=== PATIENT | female | born 1950 | race Native Hawaiian/Other Pacific Islander ===

== ENCOUNTER 2018-05-22 19:40 | Inpatient (IN) | payer OTHER ==
[~2018-05-22] VITALS: Ht 147.3 cm; Wt 42.6 kg
--- NOTE | ~2018-05-22 | HC ---
[facility] [place] [address] CONSULTATION Name: GARTH COLLINS Room #: 222-P ADM IN M.R.#: [id number] Admission: 05/22/18 Attend Phys: Fredrick Levi MD Discharge: Date of : 54 Report #: [id number] THIS REPORT FOR: //name// CC: Fredrick Gibbons DATE OF SERVICE: 05/24/2018 HISTORY OF PRESENT ILLNESS: The patient is a 68-year-old female with a prior history of Parkinson's disease and Lewy body dementia who has been living in the community with her . She had a problem with acute mental status changes with a urinary tract infection and was originally admitted to [facility] on 05/17/2018 and discharged on 05/19/2018. Since going back home, she initially was doing quite well and then had another decline in function with a recurrent UTI and was readmitted this time to [facility] on 05/22/2018. She has been diagnosed with acute encephalopathy superimposed on Parkinson's disease and Lewy body dementia. She was seen by Neurology and thought to have a rapid onset of dementia, thought to be Lewy body. She has had a decline in her function. We are seeing her in rehabilitation medicine consultation. PAST MEDICAL HISTORY: As noted above. She has a history of Parkinson's disease, Lewy body dementia was diagnosed in 03/2018, history of UTI, bronchiolitis, hypertension. There is a note of idiopathic stupor that she had with one of the urinary tract infections. MEDICATIONS: Please see the full medication listing. This includes vitamins, herbals, and supplements. ALLERGIES: No known drug allergies. HABITS: No history of tobacco or alcohol abuse that is noted. SOCIAL HISTORY: Lives in the community with her 's house, premorbidly, ambulated without gait aids, 4 steps in. is retired and assist the patient. She was able to ambulate like I said without any assistive device. REVIEW OF SYSTEMS: Did not offer any current complaints of chest pain, shortness of breath, or abdominal discomfort. PHYSICAL EXAMINATION: GENERAL: Small statured Japanese female, in no obvious distress. VITAL SIGNS: Last recorded temperature 98.3, pulse 91, respirations 20, blood pressure 141/92. NEUROLOGIC: She is pleasant. She does respond with facial expression. Has very limited verbalizations, but she was able to say hello to me. She was able to raise up her right arm to shake hands. She could participate with [employer] [facility] [address] [place] [address] CONSULTATION Name: GARTH COLLINS Room #: 222-P [facility] IN [facility]#: [id number] Admission: 05/22/18 Attend Phys: Fredrick Levi MD Discharge: Date of : 54 Report #: [id number] manual muscle testing. HEENT: Facies appeared to be symmetric. EXTREMITIES: Functional range of motion of both upper extremities. There is some cogwheeling elbows and wrists. No real resting tremor was noted. Lower extremities, there is no focal calf swelling, functional range of motion. Strength of the upper and lower extremity is grade 4 to 4-/5. DTRs are trace to 1. She was min assist with supine to sit. Gait was 200 feet min assist. She does have loss of balance when up. ASSESSMENT: A 68-year-old female with the following problem list: 1. Metabolic encephalopathy. 2. Parkinson's disease. 3. Premorbid Lewy body dementia, nevertheless living in the community. 4. Urinary tract infection. 5. Functional decline. 6. Hypertension. 7. Electrolyte abnormalities. PLAN: The patient is a candidate for an acute in-hospital inpatient rehabilitation stay. The goal would be to further improve her strength, endurance, balance, functional mobility, and ADLs, so that she could return back to the home setting where she lives with her . is supportive, desires to stay with her on the rehab lacy, which I thought would be a good idea. Can plan on transfer to the acute inpatient rehab lacy when medically cleared and the bed available. By: 1422 1801 Angel Banuelos MD /GROVER
[2018-05-22 19:41] VITALS: BP 146/82
[2018-05-22] MEDS ORDERED: CLONAZEPAM 0.50.5 M1 PO (19:55)
[2018-05-22] MEDS ORDERED: CARBIDOPA-LEVO1 EAC8 PO (19:56)
[2018-05-22] MEDS ORDERED: ARICEPT10 M1 PO (19:56)
[2018-05-22] MEDS ORDERED: LIPITOR10 MG PO (19:57)
[2018-05-22] MEDS ORDERED: HYDROCHLOROTH12.5 M1 PO (19:57)
[2018-05-22] MEDS ORDERED: CALCIUM500 MG PO (19:59)
[2018-05-22] MEDS ORDERED: CALCIUM CITRAT1 EAC7 PO (19:59)
[2018-05-22] MEDS ORDERED: KLOR-CON 1010 MEQ PO (20:00)
[2018-05-22] MEDS ORDERED: MELATIN3 MG PO (20:00)
[2018-05-22] MEDS ORDERED: TOPROL XL100 MG PO (20:00)
[2018-05-22] MEDS ORDERED: ZOLOFT50 MG PO (20:00)
[2018-05-22 20:15] LABS: ABSOLUTE NEUTROPHILS 4.9 thou/uL (1.4-8.2); BASOPHILS 0.9 % (0.0-2.0); EOSINOPHILS 2.7 % (0.0-3.0); HEMOGLOBIN 14.8 gm/dL (12.0-15.0); LYMPHOCYTES 21.6 % (24.0-44.0); MCH 31.3 pg (26.0-34.0); MCHC 34.5 g/dL (28.0-37.0); MCV 90.7 fL (80.0-100.0); MONOCYTES 9.7 % (1.0-8.0); PLATELET COUNT 174 thou/uL (150-400); POLYS 65.1 % (36.0-66.0); RBC 4.74 mil/uL (4.20-5.00); RDW 12.9 % (10.5-14.5); WBC 7.5 thou/uL (4.0-11.0)
[2018-05-22 20:26] LABS: CALCIUM 9.8 mg/dL (8.5-10.1); CREATININE 0.7 mg/dL (0.6-1.0)
[2018-05-22 20:32] LABS: ALBUMIN 3.6 g/dL (3.4-5.0); TOTAL BILIRUBIN 0.8 mg/dL (<0.1-1.0); TOTAL PROTEIN 8.2 g/dL (6.4-8.2); TROPONIN-I 0.1 ng/mL (<0.06)
[2018-05-22 20:33] LABS: URINE CLARITY CLEAR; URINE COLOR YELLOW
[2018-05-22 20:34] LABS: URINE BILIRUBIN NEGATIVE (Negative); URINE BLOOD 3+ (Negative); URINE GLUCOSE-RANDOM* NEGATIVE (Negative); URINE KETONES NEGATIVE (Negative); URINE LEUKOCYTES-REFLEX 1+ (Negative); URINE NITRITE-REFLEX NEGATIVE (Negative); URINE PROTEIN (DIPSTICK) NEGATIVE (Negative); URINE UROBILINOGEN 0.2 E.U./dl (0.2-1.0)
[2018-05-22 20:35] LABS: BACTERIA-REFLEX >30 Many /HPF (None Seen); CASTS None Seen /LPF (None Seen); CRYSTALS None Seen /LPF (None Seen); SQUAMOUS 0-3 Few /LPF (0-3); URINE RBC 3-10 Few /HPF (0-2)
[2018-05-22 20:38] LABS: AMP/METHAMP Negative (Negative); BARBITURATES Negative (Negative); BENZODIAZEPINES Negative (Negative); COCAINE Negative (Negative); METHADONE Negative (Negative); OPIATES Negative (Negative); PCP Negative (Negative)
[2018-05-22 22:08] VITALS: BP 148/67
[2018-05-22 22:09] VITALS: BP 148/67
--- NOTE | 2018-05-22 22:13 | EKG ---
[address] [place] [address] ELECTROCARDIOGRAM REPORT Name: DENNISGARTH Room #: 170-10 ADM IN M.R.#: [id number] Admission: 05/22/18 Attend Phys: Darius Foley MD Discharge: Date of : 54 Report #: [id number] THIS REPORT FOR: //name// [facility] ED Test Date: 2018-05-22 Test Time: 20:00:59 Pat Name: GARTH COLLINS Department: Room: 170 Gender: F Project Portfolio Analyst: ANABELLA : 1950 Requested By: Edie Atkins Order Number: [id number] MD: Gabriel Lloyd Measurements Intervals [place] Rate: 64 P: 43 IL: 161 QRS: 33 QRSD: 99 T: 19 QT: 407 QTc: 420 Interpretive Statements Sinus rhythm left atrial enlargement Left ventricular hypertrophy Baseline wander in lead(s) V1 Nonspecific ST-T wave changes AC noise noted No previous ECG available for comparison Electronically Signed On 05-22-2018 22:13:24 AUTO BODY REPAIRER by Gabriel Lloyd [email or web address] <ELECTRONICALLY SIGNED> By: Gabriel Lloyd MD 05/22/18 2213 99 99 Gabriel Lloyd MD /EPI
[2018-05-22 22:39] VITALS: BP 136/84
[2018-05-22 23:00] VITALS: BP 138/76
[2018-05-23 04:05] VITALS: BP 133/72
[2018-05-23 04:11] LABS: CALCIUM 9.1 mg/dL (8.5-10.1); CREATININE 0.6 mg/dL (0.6-1.0); POTASSIUM 3.4 mmol/L (3.5-5.1)
--- NOTE | 2018-05-23 05:05 | NUR ---
Arrived from ER around 2029, patient had eyes closed on arrival, but opened the eyes, talked in a wisper voice with smiles. The said she had not been alert like this for a while. VSS, afebrile. bedside. Patient is lying in bed now, with eyes closed. will keep monitoring.
[2018-05-23 05:09] LABS: FOLIC ACID 39.4 ng/mL (8.6-58.9)
[2018-05-23 08:05] VITALS: BP 143/67
--- NOTE | 2018-05-23 12:07 | NUR ---
PT ADMITTED RELATED TO UTI. CM REVIEWED CHART AND SPOKE WITH CARE TEAM. CM MET WITH PT, SPOUSE, AND SON AT BEDSIDE THIS DAY. PT IS AWAKE BUT DOESN'T RESPOND TO ASSESSMENT QUESTIONS. SPOUSE INDICATED HE AND PT RESIDE IN A HOUSE WITH 5 STEPS TO ENTER AND 5 SETS OF 8 INSIDE. SPOUSE INDICATED THAT PT HAD BEEN ON SERVICE WITH [facility] COLL[facility] STITCHER AND THEY ARE RECEPTIVE TO HH AGAIN UPON DC IF INDICATED. 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 PLAN IS FOR PT TO RETURN HOME ONCE MEDICALLY STABLE. CM TO FOLLOW INDICATED WITH DC PLANNING.
[2018-05-23 12:45] VITALS: BP 143/67
--- NOTE | 2018-05-23 13:39 | NUR ---
REPORT GIVEN TO SENIOR SUITES NURSE. PATIENT AND HER BELONINGS MOVED TO ROOM 223
[2018-05-23 14:33] VITALS: BP 148/80
--- NOTE | 2018-05-23 15:09 | NUR ---
PATIENT TRANSFERRED FROM [facility], REPORT RECEIVED FROM CORNELL/MELECIO. PATIENT ALERT AND ORIENTED WITH A DELAY WITH SPEAKING WHEN QUESTIONS ASKED, AT BEDSIDE TO ASSIST WHEN ASKING QUESTIONS. PATIENT DENIES PAIN UPON ARRIVING TO THE UNIT. PATIENT HAS RIGHT WRIST IV WITH NS AT 75CC/HR. PATIENT CAN GET UP WITH ASSIST TO BSC. WILL CONTINUE TO MONITOR.
--- NOTE | 2018-05-24 01:51 | NUR ---
Pt alert to self and place,sometimes able to make needs known other times will just keep quiet and smile. Denies pain on assessment. Up with SBA to bathroom,voiding without any complaints. Bed alarm on as pt doesn't always call for help,spouse at the bedside for the night. Had an episode of incontinence with urine. IV fluids infusing via right wrist IV without any problems.Pt resting quietly with eyes closed at this time,will continue to monitor.
[2018-05-24 02:31] LABS: ABSOLUTE NEUTROPHILS 5.5 thou/uL (1.4-8.2); BASOPHILS 0.9 % (0.0-2.0); EOSINOPHILS 1.4 % (0.0-3.0); HEMATOCRIT 37.1 % (37.0-47.0); HEMOGLOBIN 12.9 gm/dL (12.0-15.0); LYMPHOCYTES 20.8 % (24.0-44.0); MCH 31.4 pg (26.0-34.0); MCHC 34.6 g/dL (28.0-37.0); MCV 90.6 fL (80.0-100.0); PLATELET COUNT 171 thou/uL (150-400); POLYS 68.9 % (36.0-66.0); RDW 12.8 % (10.5-14.5)
[2018-05-24 03:02] LABS: CALCIUM 8.7 mg/dL (8.5-10.1); CREATININE 0.7 mg/dL (0.6-1.0); POTASSIUM 3.4 mmol/L (3.5-5.1)
[2018-05-24 09:11] VITALS: BP 141/92
--- NOTE | 2018-05-24 13:09 | NUR ---
5N to eval patient. Sp with spouse he reports he sp with Dr Hicks that mentioned skilled care as well. Patient with recent Lewy Body dementia diagnosis. Spouse reports patient has not been in rehab at [facility] which is hospital they usually choose. Hopeful for 5N if not 5N interested in [facility]. Sp has skilled list reviewed options.
[2018-05-24] MEDS ORDERED: ROCEPHIN 11 GM/1001 IV (15:36)
--- NOTE | 2018-05-24 16:06 | NUR ---
patient accepted to 5N. Planned dc to 5N today. patient, spouse in agreement.
--- NOTE | 2018-05-24 17:40 | NUR ---
ASSUMED CARE OF PATIENT AT 0715, PATIENT ALERT WITH CONFUSION. PAIENT HAS A DELAY WITH SPEAKING, MAY NOT ANSWER WHEN QUESTIONS ASKED. PATIENT HAS ENCEPHALOPATHY AND LEWY BODY DEMENTIA BOTH RECENT DIAGNOSES. PATIENT APPEARS TO NOT HAVE ANY PAIN THIS SHIFT. AT BEDSIDE. PATIENT HAS RIGHT FOREARM IV WITH NS AT 75CC/HR. PATIENT TAKES PILLS 1 AT A TIME WITH YOGURT OR PUDDING. PATIENT UP WITH ASSIST X 1, PATIENT CAN BE INCONTINENT. PATIENT WILL DISCHARGE TO [address] [place] [address] REHAB, REPORT GIVEN TO SISTER REGI/RN. PATIENT WILL BE IN 514.
== END 2018-05-24 18:10 | DRG 689 ==
LOC: ER 19:40 → 4E 21:42 → EROBS 21:42 → SICU 21:42 → 4E 22:39 → SICU 05-23 13:43
PROVIDERS: Hospitalist; Nurse Practitioner Family; Student in an Organized Health Care Education/Training Program; ADMIT Hospitalist
DX: N39.0 Urinary tract infection, site not specified (principal); G93.41 Metabolic encephalopathy; E43 Unspecified severe protein-calorie malnutrition; Z68.1 Body mass index [BMI] 19.9 or less, adult; I10 Essential (primary) hypertension; E87.6 Hypokalemia; G31.83 Neurocognitive disorder with Lewy bodies; F02.80 Dementia in other diseases classified elsewhere, unspecified severity, without behavioral disturbance, psychotic disturbance, mood disturbance, and anxiety; E87.8 Other disorders of electrolyte and fluid balance, not elsewhere classified; E78.5 Hyperlipidemia, unspecified; K59.00 Constipation, unspecified; F41.9 Anxiety disorder, unspecified; F32.9 Major depressive disorder, single episode, unspecified; E86.0 Dehydration; Z79.899 Other long term (current) drug therapy
CPT/HCPCS: 10084; 15002

== ENCOUNTER 2018-05-24 16:26 | Inpatient (IN) | payer OTHER ==
[~2018-05-24] VITALS: Ht 152.4 cm; Wt 43.1 kg
[~2018-05-24 16:26] MED LIST: ARICEPT10 M1 PO; CALCIUM CITRAT1 EAC7 PO; CALCIUM500 MG PO; CARBIDOPA-LEVO1 EAC8 PO; CLONAZEPAM 0.50.5 M1 PO; HYDROCHLOROTH12.5 M1 PO; KLOR-CON 1010 MEQ PO; LIPITOR10 MG PO; MELATIN3 MG PO; ROCEPHIN 11 GM/1001 IV; TOPROL XL100 MG PO; ZOLOFT50 MG PO
[2018-05-24 18:00] VITALS: BP 145/88
--- NOTE | 2018-05-24 19:28 | NUR ---
PT ADMITTED TO ROOM 514 AT 1800. FOR METABOLIC ENCEPHALOPATHY, PARKINSON'S DISEASE. ALERT, QUIET, SMILE, SLOW IN RESPONSE, IS AT BEDSIDE AND ASSIST ASWERING ADMISSION QUESTIONS. REASSESSMENT PER CHART, ADMISSION MEDS RECONCILED WITH HOME MEDS AND FAXED TO PHARMACIST. OFFERED SUPPORTIVE CARE. ENCOURAGED PT TO VOICE HER NEEDS. UP TO RECLINER AND EATING DINNER WITH CUE. PT IS CONTINUE TO BE ON CEFTRIAXONE IV ABT FOR UTI. UP WITH SBA SINCE SHE IS WEAK, FOLLOW COMMAND. SAID PT WAS INDEPENDENCE WITH GAIT AND ADL, COOKS FOR HERSELF AND HER AT HOME. ORIENTED TO [facility] AND WENT OVER REHAB SCHEDULE. WILL SIGN CONSENTS LATER AND WILL STAY WITH PT'S TONIGHT. PT DENIES PAIN, SOB, N/V. FALL PRECAUTION IN PLACE. CALL LIGHT WITHIN REACH. GAVE REPORT TO NIGHT NURSE TO CONTINUE TO MONITOR. IV ON RIGHT WRIST LITTLE INFILTRATED, WILL TRY TO START IV ON LEFT FOREARM AFTER PT FINISH HER DINNER. WILL CONTINUE TO MONITOR.
[2018-05-24 19:51] VITALS: BP 151/80
--- NOTE | 2018-05-24 20:09 | NUR ---
IV ON RIGHT WRIST REMOVED. INSERTED NEW IV ON LEFT FOREARM. PT CONTINUE TO BE IV ABT TONIGHT.
--- NOTE | 2018-05-25 03:08 | NUR ---
assumed care at approx 1900 evening 05/24. pt lying in bed with head of bed elevated at change of shift. pt pleasantly confused, cooperative. at bedside very supportive with pts care. pt up to bathroom to void and pt also has brief on. pt took hs meds with applesauce tolerating well. pt appears to be sleeping soundly with hourly rounding checks. bed alarm on and call light in reach. sleeping on cot at bedside. will continue to monitor.
[2018-05-25 08:29] LABS: HEMATOCRIT 37.4 % (37.0-47.0); HEMOGLOBIN 12.8 gm/dL (12.0-15.0); MCHC 34.3 g/dL (28.0-37.0); MCV 90.4 fL (80.0-100.0); RBC 4.13 mil/uL (4.20-5.00); RDW 12.9 % (10.5-14.5); WBC 6.1 thou/uL (4.0-11.0)
[2018-05-25 08:37] LABS: CALCIUM 9.1 mg/dL (8.5-10.1); CREATININE 0.6 mg/dL (0.6-1.0)
--- NOTE | 2018-05-25 16:26 | NUR ---
PT. REMAINS WITH PATIENT. SHE REMAINS CONFUSED, VERBALIZING VERY LITTLE WITH STAFF SHE IS HARD OF HEARING, BUT DID SIT ON UNIT TO EAT. HAS LT ARM SALINE LOCK. RECEIVED STOOL SOFTNER. LAB DRAWN THIS MORNING.
[2018-05-25 19:26] VITALS: BP 158/78
--- NOTE | 2018-05-25 23:00 | NUR ---
PATIENT LETHARGIC AND CLENCHING TEETH SO TO NOT ALLOW MEDS TO BE GIVEN. SINEMET GIVEN CRUSHED IN YOGURT IN SMALL PORTIONS. OTHER MEDS HELD WITH ORDER TO GIVE POTASSIUM SWITCHED TO IV ADMINISTRATION. LATONIA AT BEDSIDE STATES THAT SOMETIMES SHE WILL BE LIKE THIS A DAY OR 36 HOURS AND SUDDENLY WILL START TALKING AGAIN.
--- NOTE | 2018-05-26 03:38 | NUR ---
PATIENT RESTING WITH STAYING IN ROOM ON A COT. POTASSIUM FINISHING IN LEFT FOREARM SITE WITH NO APPARENT PAIN
[2018-05-26 05:41] LABS: HEMATOCRIT 38.1 % (37.0-47.0); HEMOGLOBIN 12.9 gm/dL (12.0-15.0); MCH 31.1 pg (26.0-34.0); MCV 91.5 fL (80.0-100.0); RBC 4.16 mil/uL (4.20-5.00); RDW 13.2 % (10.5-14.5); WBC 6.9 thou/uL (4.0-11.0)
[2018-05-26 05:51] LABS: CALCIUM 8.8 mg/dL (8.5-10.1); CREATININE 0.7 mg/dL (0.6-1.0); POTASSIUM 3.8 mmol/L (3.5-5.1)
[2018-05-26 07:35] VITALS: BP 140/78
--- NOTE | 2018-05-26 11:24 | NUR ---
ASSUMED CARE AT 0700. PATIENT IS VERY SOMULENT. PATIENT DID RESPOND TO STERNAL RUB AND FOOT STIMULATION. PATIENT DIDN'T OPEN HER EYES. AT BEDSIDE. HE STATED " SHE WENT TO BED AT 1800 AND HAS BEEN SOMULENT EVER SINCE. LUNGS ARE CLEAR, ABD IS SOFT WITH BSX4. PATIENT IS INCONTINENT OF URINE. PATIENT HAS S.L. IN HER LEFT FORARM. DR. WHALEN NOTIFIED. ORDERS RECIEVED TO HOLD MEDS AND MEALS UNTIL AWAKE AND ALERT. IVF: NS STARTED AT 75CC/HR. PATIENT WAS CLEANED UP AND TURNED TO HER LEFT SIDE. PATIENT WILL BE TURNED Q2 HOURS. FALL AND SAFETY PROTOCOLS IN PLACE. WILL CONTINUE TO MONITER.
--- NOTE | 2018-05-26 11:28 | NUR ---
DR. WHALEN HERE TO SEE PATIENT. NO NEW ORDERS GIVEN. CONTINUE PLAN OF CARE UNTIL PATIENT IS AWAke and ALERT. WILL CONTINUE TO MONITER.
[2018-05-26 19:41] VITALS: BP 142/85
--- NOTE | 2018-05-27 01:46 | NUR ---
PATIENT REMAINS SLEEPY, WAS AWAKE AND THISTY AT 2200, SO SHE WAS GIVEN CRUSHED ARICEPT AND WHOLE SINEMET CR WITH APPLESAUCE PLUS A FEW SIPS OF WATER BEFORE SHE DOZED OFF AGAIN. IS STAYING OVERNIGHT WITH PATIENT, VERY ATTENTIVE, AND ENCOURAGING HER TO TAKE ANYTHING PO WHEN SHE IS AWAKE. AT THIS POINT, WE ARE TURNING HER EVERY 2 HOURS, CHANGING HER IF WET, AND APPLYING MOISTURE BARRIER, HEELS ARE OFFLOADED WITH PILLOW UNDER CALVES, SCDs ARE ON, IV FLUIDS ARE INFUSING, DAILY ANTIBIOTIC WAS GIVEN AT 2100. WILL ENCOURAGE PATIENT TO TAKE POTASSIUM 10 mEq PILLS IF AND ONLY IF WE ASSISTANT OPERATOR HER TO BE AWAKE ENOUGH TO SWALLOW THEM WHOLE WITH APPLESAUCE OR YOGURT.
--- NOTE | 2018-05-27 02:45 | NUR ---
AWAKE ENOUGH TO DRINK 120 CC WATER BY REQUEST AND 60 CC APPLE JUICE WHEN OFFERED SMALL SIPS THOUGH STRAW
[2018-05-27 08:15] VITALS: BP 143/84
--- NOTE | 2018-05-27 12:15 | NUR ---
cm visited with pt and spouse at bedside. no co from pt or spouse. education on dcp, team meetings and home health. pt soft spoken with yes to her martin with confusion and forgetfulness. david stay with her " i help her at home, she has chair yoga for activity. had [facility] in past. 5 steps to enter home and 5 set of 8 stair inside home. i manage her medication for her.thank you for check in on use"/ david. will cont following as needed for dc needs.
--- NOTE | 2018-05-27 19:47 | NUR ---
ASSUMED CARE AT APPROX 0715. PATIENT AWAKE THIS DATE. SLOW TO FOLLOW COMMANDS. NOT VERBALIZING NEEDS, OCCASIONALLY WILL ANSWER YES OR NO. PARTICIPATED IN SOME THERAPY. PATIENT OBSERVED LIMPING DURING THERAPY. LEFT ANKLE HAD MINIMAL SWELLING. PATIENT REFUSED TO VERBALIZE PAIN RATING, NO GUARDING FOOT, AMBULATED MIN ASSIST. X RAY OBTAINED, SHOWED NO OSSEOUS FINDINGS. PATIENT ATE SMALL AMOUNTS OF FOOD, DRANK WELL, INCONTINENT OF URINE- VOIDING WELL, BRIEFS CHECKED AND CHANGED NEEDED. FALL PRECAUTIONS IN PLACE. RESTING IN BED AT CHANGE OF SHIFT.
[2018-05-27 20:00] VITALS: BP 129/74
--- NOTE | 2018-05-27 21:53 | HC ---
[facility] [place] [address] CONSULTATION Name: GARTH COLLINS Room #: 514-P ADM IN M.R.#: [id number] Admission: 05/24/18 Attend Phys: Angel Banuelos MD Discharge: Date of : 54 Report #: [id number] THIS REPORT FOR: //name// CC: Tonya Banuelos DATE OF SERVICE: 05/26/2018 ATTENDING PHYSICIAN: Angel Banuelos MD RIB CLOTH KNITTER: Beni Baez, PhD CLINICAL PRESENTATION: The patient is a 68-year-old female admitted to the rehab unit at [facility] for comprehensive inpatient rehabilitation program to improve functional mobility, activities of daily living and self-care and mental status secondary to metabolic encephalopathy. She carries diagnoses of Parkinson's disease, premorbid Lewy body dementia, urinary tract infection, functional decline, hypertension and electrolyte abnormalities. A complete description of her medical condition, history and medications can be found in her medical record. Neuropsychological consultation was requested to provide assistance in the assessment of cognitive and emotional status and to provide recommendations and services. The patient is with 3 children. 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 There is no reported history of mental illness, treatment for depression or anxiety or alcohol/drug abuse. TECHNIQUES UTILIZED: Clinical interview, review of medical records, staff consultation and behavioral observation, family interview -- and family. EXAMINATION FINDINGS: The patient was unresponsive during the assessment. She just remained lying in her bed without opening her eyes. Their was no response to attempts at obtaining a response from either her or [id number]. The patient is described as having been unresponsive for the last couple of days. Her describes her history to include a discontinuation of driving approximately 05/2016. The reason she discontinued driving is reported to have been orthopedic with a knee related problem. However, she was able to manage household responsibilities that included basic and instrumental activities of daily living. Her functioning was first noticed to have deteriorated beginning 10/2017. In 10/2017, she reportedly became paranoid with intermittent confusion and disorientation. Her family described her as seeing people in the home as well [facility] [address] [place] [address] CONSULTATION Name: GARTH COLLINS Room #: 514-P [facility] IN M.R.#: [id number] Admission: 05/24/18 Attend Phys: Angel Banuelos MD Discharge: Date of : 54 Report #: [id number] as paranoid thinking in regard to their safety along with visual hallucinations. She then had a brief hospitalization at the [facility] in which she was diagnosed with the Lewy body dementia. When she returned home, her functioning improved; however, still requiring increased supervision and structure. In 03/2018, her condition deteriorated considerably to the extent of periodic unresponsiveness that eventually resolved with a resolution to a more responsive state. However, assistance with IADL's is necessary. She has been unresponsive during this most recent hospitalization. DIAGNOSTIC IMPRESSION: Delirium, hypoactive, acute. Major neurocognitive disorder (dementia), unspecified without behavior disorder -- extent to be determined, appears in the [id number] range by family report. Unspecified Psychotic Disorder RECOMMENDATIONS: Depending on the extent of the workup that has already further assessment of delirium is indicated. Periodic unresponsivness is typically associated with advanced dementia, however, the rapid nature of her decline suggests an acute condition. Although, periodic episodes of unresponsiveness can be seen in dementia. Catatonia that is associated with schizophrenia can also present with periodic unresponsiveness and hallucinations. She may benefit from psychiatric consultation. Follow up neuropsych assessment upon stabilization of her cognitive presentation. The patient will require 24-hour care that includes assistance in management of medication, nutrition and finances. Thank you very much for allowing me to provide the consultation on this patient. <ELECTRONICALLY SIGNED> By: Beni Baez, PhD 05/27/18 [id number] Beni Baez, PhD /nt
--- NOTE | 2018-05-27 23:17 | NUR ---
assumed care at approx 1900 evening 05/27. pt in recliner at change of shift sleeping. at bedside. pt awoken and assisted to bathroom to void in toilet. pts brief was dry. assisted with gown change and into bed. pt appropriate and cooperative. pt took hs meds with applesauce tolerating well. at bedside now sleeping on cot. pt appears to be sleeping soundly at present. bed alarm on and call light in reach. will continue to monitor.
[2018-05-28 07:50] VITALS: BP 125/70
--- NOTE | 2018-05-28 13:03 | NUR ---
team meeting, recommendation: dc home with hh ( pt,ot,st, and nursing) or possible next sunday if neuro and pysch need to cont to monitor medication changes.
--- NOTE | 2018-05-28 14:09 | NUR ---
DR. MAI CALLED TO CHECK ON PT'S PROGRESS ON THE ATIVAN. NOTED TO HER THAT PT HAS BEEN MUCH MORE ENGAGED, WALKING AROUND THE UNIT WITH THE PCT AND HER , AND SMILING, TALKING SOME, AND NO FURTHER FREEZING EPISODES NOTED DURING ACTIVITY. PER DR. MAI, THIS CHANGE IN HER DEMEANOR WAS ANTICIPATED, AND THERE WILL NOW BE A PLAN TO SCHEDULE THE ATIVAN THROUGHOUT THE DAY.
--- NOTE | 2018-05-28 16:34 | NUR ---
ASSUMED CARES AT 0700. PT CONFUSED, ORIENTED TO SELF ONLY. QUIET AND DISORIENTED THIS AM, ATIVAN ADMINISTERED PER ORDER AND PT MORE INTERACTIVE AND WALKED MULTIPLE TIMES WITH NURSE AIDE. PSYCH CONSULTED AND ATIVAN ORDERED TID. VITALS REMAINED STABLE. PT DENIES PAIN. NO SKIN CONCERNS. PT UP WITH 1 PERSON TRANSFERS AND AMBULATED THE HALLWAYS WITH GAITBELT ONLY AND TOLERATED WELL. Q1L VISUAL CHECKS. SPOUSE IN ROOM WITH PT. FALL PRECAUTIONS IN PLACE. CALL LIGHT WITHIN REACH
[2018-05-28 19:30] VITALS: BP 117/66
--- NOTE | 2018-05-29 01:20 | NUR ---
PT ALERT AND ORIENTED X 1. AMB TO BR WITH GAIT BELT AND ASSIST X 1. UNSTEADY GAIT. IMPULSIVE X 1 LAST EVENING SETTING OF CHAIR ALARM AND FOUND IN BATHROOM. PT TOOK HS MEDS CRUSHED IN APPLESAUCE WITHOUT DIFFICULTY. PT DENIES PAIN OR DISCOMFORT. BED ALARM ON FOR SAFETY. PT EASILY VISIBLE FROM NURSES STATION. HERE DURING THE NIGHT.
[2018-05-29 09:07] VITALS: BP 116/70
--- NOTE | 2018-05-29 09:35 | NUR ---
FAXED REFERRAL TO [facility] SPOKE WITH HERI IN ADM. SHE RECEIVED REFERRAL AND CAN ACCEPT PT. AT [place]. DCP TO FOLLOW.
[2018-05-29 09:49] VITALS: BP 116/70
--- NOTE | 2018-05-29 12:02 | NUR ---
ASSUMED CARES AT 0700. PT ASLEEP, ORIENTED TO PERSON ONLY. WOKE UP A 0800. VITALS REMAINED STABLE. DENIES PAIN. SKIN REMAINS INTACT. PT UP WITH 1 PERSON MIN ASSIST, AMBULATED TO THE BATHROOM, INCONTINENT OF BLADDER *1. PT'S SPOUSE IN ROOM WITH PATIENT. PT TIRED, WITHDRAWN AND SLEEPY AFTER AM THERAPY, ATIVAN ADMINISTERED AT NOON. Q1H VISUAL CHECKS. CALL LIGHT WITHIN REACH. FALL PRECAUTIONS IN PLACE
--- NOTE | 2018-05-29 15:17 | NUR ---
Patient participated in community reintegration on 05/29/18 with OT. Refer to documentation by OT.
[2018-05-29 19:29] VITALS: BP 115/63
--- NOTE | 2018-05-30 05:29 | NUR ---
PT RESTED GOOD, STANDBY ASSIST WITH AMBULATION, SLOW THOUGHT PROCESS AT TIMES, INTERACTED GOOD WITH THIS NURSE IN HER [place] LANGUAGE, PER REQUEST TO GIVE HER ATIVAN EARLY THIS MORNING TO HELP PT GET MORE REST, DENIES PAIN, ABLE TO TURN AND REPOSITION SELF, HOURLY ROUNDING, MONTIORED.
[2018-05-30 08:00] VITALS: BP 113/78
--- NOTE | 2018-05-30 14:39 | NUR ---
PATIENT'S DAUGHTER ROSANGELA ROSE NOTED OVER THE PHONE THIS AFTERNOON THAT THEY ARE WONDERING IF THE CARBIDOPA/LEVODOPA CAN BE REDUCED IN DOSAGE OR STOPPED COMPLETELY WHILE THE PATIENT IS IN THE HOSPITAL TO SEE IF SHE EVEN NEEDS THIS MEDICATION. ROSANGELA STATED THAT THE PATIENT WAS BROUGHT IN TO THE ED AT [facility] IN MARCH OF 2018, DUE TO SHAKING, AND WAS GIVEN IV ATIVAN, WHICH RESOLVED THE ISSUE. SHE SAID THAT AFTER THE IV MEDICATION WORE OFF, THE SHAKING STARTED AGAIN, AND THE NEUROLOGIST AT [facility] PUT THE PATIENT ON CARBIDOPA/LEVODOPA. PER PT'S , EVERYTHING WAS GOING WELL UNTIL THIS RECENT ACUTE ISSUE WITH CATATONIA AND FREEZING, AND PT HAD UTI. PT'S AND DAUGHTER BOTH WERE PLEASED WITH HER RESPONSE TO THE ATIVAN, AND QUESTION IF THE PATIENT NEEDS THE SINEMET. DAUGHTER ASKED IF THE SINEMET CAN BE STOPPED WHILE SHE IS INPATIENT TO SEE IF SHE REGRESSES OR IF THE ATIVAN IS ENOUGH TO MANAGE HER ISSUES. THIS QUESTION WAS CONVEYED TO MANUELA LOZANO NP, WHO STATED PLAN TO CONSULT OUR NEUROLOGIST AT [facility] TO EVALUATE TITRATION OF CARBIDOPA/LEVODOPA IF APPROPRIATE.
--- NOTE | 2018-05-30 16:41 | NUR ---
ASSUMED CARE AT APPROX 0715. PATIENT AWAKE, ALERT, ORIENTED TO PERSON AND PLACE. VERBALIZING NEEDS. PARTICIPATING IN THERAPY, ENGAGED IN CARE. ATIVAN ADMINISTERED PER ORDERS, PSYCHIATRY TO SEE PATIENT THIS EVENING. ANTICIPATING D/C HOME SUNDAY. NEUROLOGY CONSULTED TO DISCUSS TAPERING OF SINEMET DOSE PRIOR TO D/C. FALL PRECAUTIONS IN PLACE. PATIENT ROUNDED ON HOURLY, VISIBLE FROM NURSES STATION. NOT IMPULSIVE, PATIENT'S AT BEDSIDE. WILL CONTINUE TO MONITOR.
[2018-05-30 21:09] VITALS: BP 118/71
--- NOTE | 2018-05-30 22:54 | NUR ---
PT ALERT AND ORIENTED X 2. AMB TO BR WITH GAIT BELT AND ASSIST X 1. UNSTEADY GAIT AT TIMES. PT TOOK HS MEDS IN APPLESAUCE WITHOUT DIFFICULTY. PT DENIES PAIN OR DISCOMFORT. BED ALARM ON FOR SAFETY. PT APPEARS TO BE SLEEPING ON HOURLY ROUNDS. HERE DURING THE NIGHT.
[2018-05-31 08:15] VITALS: BP 131/83
--- NOTE | 2018-05-31 10:34 | NUR ---
ASSUMED CARES AT 0700. PT SLEEPY, ORIENTED TO PERSON ONLY. VITALS STABLE. DENIES PAIN. *1 LARGE INCONTINENT EPISODE THIS AM, BEDDINGS AND CLOTHING CHANGED. PT UP WITH 1 PERSON SBA, GAITBELT AND WALKER. CONTINUES TO HAVE MILD SWELLING ON LEFT ANKLE, WEIGHT BEARING TOLERATED. SPOUSE AT BEDSIDE. Q1H VISUAL CHECKS. CALL LIGHT WITHIN REACH. FALL PRECAUTIONS IN PLACE
[2018-05-31 21:28] VITALS: BP 119/68
--- NOTE | 2018-06-01 02:49 | NUR ---
assumed care at approx 1900 evening 05/31. pt sitting up in recliner at change of shift dozing off and on. at bedside very supportive. pt took hs meds with applesauce tolerating well. pt appears to be sleeping soundly with hourly rounding checks. bed alarm on, call light in reach and at bedside. will continue to monitor.
[2018-06-01 08:13] VITALS: BP 123/73
--- NOTE | 2018-06-01 16:42 | NUR ---
ASSUMED CARE AT APPROX 0715. PATIENT AWAKE. ORIENTED X3. DROWSY AT TIMES, FOLLOWS COMMANDS APPROPRIATELY. PARTICIPATED IN THERAPY. PATIENT'S AT BEDSIDE. PATIENT TOLERATING PILLS WHOLE IN APPLESAUCE. UP IN RECLINER FOR REST BETWEEN THERAPIES AND FOR MEALS. ANTICIPATING DISCHARGE ON SUNDAY. FALL PRECAUTIONS IN PLACE. WILL CONTINUE TO MONITOR.
[2018-06-01 19:52] VITALS: BP 117/67
--- NOTE | 2018-06-02 03:54 | NUR ---
assumed care at approx 1900 evening 06/01. pt sitting up in recliner at change of shift dozing. at bedside. pt in good mood. up to bathroom to void and assisted into gown before bedtime. pt took hs meds with water tolerating well. pt appears to be sleeping soundly with hourly rounding checks. bed alarm on and call light in reach. at bedside. will continue to monitor.
[2018-06-02 08:15] VITALS: BP 123/63
--- NOTE | 2018-06-02 11:29 | NUR ---
ASSUMED CARES AT 0700. PT IN BED AWAKE, ORIENTED TO PERSON AND PLACE ONLY. DENIES PAIN. VITALS STABLE. PT WAS INCONTINENT OF BLADDER THIS AM, DEPEND AND CLOTHING CHANGED. UP WITH 1 PERSON MIN ASSIST. AMBULATED WITH STAFF AND RODE THE BIKE IN THE PT GYM, TOLERATED WELL. AND DAUGHTER AT BEDSIDE. Q1H VISUAL CHECKS. CALL LIGHT WITHIN REACH. FALL PRECAUTIONS IN PLACE
[2018-06-02 19:09] VITALS: BP 114/67
--- NOTE | 2018-06-03 03:28 | NUR ---
ASSUMED CARE AT START OF SHIFT, PT UP TO BATHROOM WITH GAIT BELT AND WALKER , TOLERAITNG WELL, PT SAT UP IN CHAIR MOST OF EVENING AT BEDSIDE, DISCUSSED PLAN OF CARE WITH PT AND , PT NOT VERY VERBAL, BUT VERBLAIZED UNDERSTANDING. PO MEDICATION TAKEN AND TOLERATED WELL. PT ASSISTED TO CHAIR TO BED WITH ASSIST OF 2 . WILL CONINTUE WITH CURRENT PLAN OF CARE
[2018-06-03 08:00] VITALS: BP 121/73
[2018-06-03] MEDS ORDERED: COLACE100 MG PO (09:57)
[2018-06-03] MEDS ORDERED: ATIVAN0.5 MG PO (09:59)
--- NOTE | 2018-06-03 10:26 | NUR ---
ASSUMED PT CARE AT 0700. ASSESSED PT AT 0840. ASSESSMENT IS CHARTED. VITAL SIGNS STABLE. PT REPORTS PAIN TO LEFT SHOULDER THOUGH UNABLE TO RATE. SAYS IT'S JUST A LITTLE PAIN. TYLENOL GIVEN. PT ALERT/ORIENTED TO PERSON,PLACE, AND TIME OF DAY BUT DELAYS AND THINKS ABOUT IT FOR SEVERAL SECONDS BEFORE ANSWERING. AT BEDSIDE ANTICIPATING DISMISSAL TODAY. WILL AWAIT ORDERS AND CONTINUE WITH CURRENT CARE.
--- NOTE | 2018-06-03 10:57 | HC ---
[facility] [place] [address] CONSULTATION Name: GARTH COLLINS Room #: 514-P ADM IN M.R.#: [id number] Admission: 05/24/18 Attend Phys: Angel Banuelos MD Discharge: Date of : 54 Report #: [id number] THIS REPORT FOR: //name// CC: Tonya Banuelos HISTORY OF PRESENT ILLNESS: The patient is a 68-year-old female who was diagnosed with Lewy body dementia at [facility]. The patient is on donepezil for her memory and is also on Sinemet and when she was in [facility], had been prescribed the medication 3 times a day. Her is in the room. The patient would not speak to me. Apparently, she was admitted to [facility], but she had been hallucinating. She also had some mild tremor of the hands, but that has now gone with medication. Her just does not think she has Parkinson's disease and would like to see if the medication could be stopped. PAST MEDICAL HISTORY: Lewy body dementia, hyperlipidemia, hypertension. PAST SURGICAL HISTORY: Unknown. MEDICATIONS: In the hospital include lorazepam 0.5 mg t.i.d., atorvastatin 10 mg at bedtime, Caltrate with vitamin D daily, calcium carbonate 1250 mg daily, Colace 100 mg b.i.d., metoprolol XL 100 mg daily, MiraLax 17 grams daily, sertraline 100 mg daily, Sinemet CR 25/100 b.i.d. ALLERGIES: None. VITAL SIGNS: Temperature 36.7, pulse rate 98, respiratory rate 16, blood pressure 131/83, bedside pulse oximetry 100% on room air. LABORATORY WORK: Hematology: White blood cell count 6.9, hemoglobin 12.9, hematocrit 38.1, MCV 91.5, platelet count 181,000. Chemistry: Sodium 143, potassium 3.8, chloride 107, carbon dioxide 28, BUN 17, creatinine 0.7, glucose 89. NEUROLOGIC: Cranial nerves 2-12 are grossly intact. The patient would not speak to me. Motor exam demonstrates symmetrical strength in all 4 extremities. There is no evidence of cogwheel rigidity or increased tone. Reflexes are symmetrical throughout. Coordination and gait were not tested. IMPRESSION: This patient has been diagnosed with Lewy body dementia. I asked her what it meant to him when someone has Parkinson's disease. He told me it means that they shake. I explained to him that she is on medication and that may be why the shaking is controlled; however, because she has Lewy body dementia, it causes parkinsonian features, which may or may not include tremor, difficulty walking, difficulty with balance, taking small steps and slowness of movement. Although no obvious tremor is seen now, he states that she does have [address] [address] CONSULTATION Name: GARTH COLLINS Room #: 514-P [facility] IN M.R.#: [id number] Admission: 05/24/18 Attend Phys: Angel Banuelos MD Discharge: Date of : 54 Report #: [id number] these other features. I explained to him that I am willing to taper the medication. As it turns out, she had been on Sinemet 3 times a day at [facility]. She is now on it twice a day. I am going to discontinue it and follow her over the weekend. If she develops difficulty walking or becomes more slow of movement, then she will need Sinemet to counteract that. I thank you for your kind referral of the patient and will continue to follow her with you. <ELECTRONICALLY SIGNED> By: Lydia Reeves DO 06/03/18 1057 [id number] Lydia Reeves DO /nt
[2018-06-03 12:34] VITALS: BP 116/70
--- NOTE | 2018-06-03 13:12 | NUR ---
DISCHARGED PT IN STABLE CONDITION VIA WHEELCHAIR WITH FAMILY AT SIDE.
--- NOTE | 2018-06-03 13:12 | NUR ---
PT TO DISCHARGE HOME THIS DAY. PT IS TO HAVE [facility]. NO OTHER CM INTERVENTION INDICATED AT THIS TIME. CASE CLOSED.
--- NOTE | 2018-06-04 15:16 | NUR ---
PT. DISCHARGED 06/03/18 TO HOME WITH . FAXED DC ORDERS TODAY TO [facility] AND [facility] WITH BRENT THAT PT. DISCHARGED YESTERDAY AND DC ORDERS WERE FAXED. SHE WILL NOTIFY PT. TIME OF VISITS.
--- NOTE | 2018-06-06 11:23 | PLAN ---
[facility] [address] REHAB UNIT PLAN OF CARE Name: GARTH COLLINS Room #: 514-P [facility] IN M.R.#: [id number] Admission: 05/24/18 Attend Phys: Angel Banuelos MD Discharge: 06/03/18 Date of : 54 Report #: [id number] THIS REPORT FOR: //name// CC: Tonya Banuelos DATE OF SERVICE: 05/25/2018 OVERALL PLAN OF CARE: The overall plan of care is based on the preadmission screen, post-admission physician evaluation, and information garnered from therapy assessments. 1. Estimated length of stay is probably 7-10 days. 2. Medical prognosis is reasonably good. 3. Anticipated interventions includes the interdisciplinary acute inpatient rehabilitation program. 4. Anticipated functional outcomes would be for the patient to become modified independent with her basic mobility as she was before when she ideally did not utilize any gait aids or at least get to the point where she can use a cane or a walker independently as well as achieving her prior level of ADL independence that she was before and improvement in her overall cognition so that she can return back to the home setting. 5. Discharge destination would be back home with her . 6. Expected therapy by discipline includes PT, OT, and speech 1 hour per day each 5 days a week throughout the duration of the acute inpatient rehabilitation stay. <ELECTRONICALLY SIGNED> By: Angel Banuelos MD 06/06/18 1123 1341 2151 Angel Banuelos MD /lamin
--- NOTE | 2018-06-06 11:23 | H ---
[facility] [place] [address] HISTORY AND PHYSICAL Name: GARTH COLLINS Room #: 514-P [facility] IN M.R.#: [id number] Admission: 05/24/18 Attend Phys: Angel Banuelos MD Discharge: 06/03/18 Date of : 54 Report #: [id number] THIS REPORT FOR: //name// CC: Tonya Banuelos DATE OF SERVICE: 05/24/2018 HISTORY AND PHYSICAL/POST-ADMISSION PHYSICIAN EVALUATION HISTORY OF PRESENT ILLNESS: The patient is a 68-year-old white female with a prior history of Parkinson's disease and Lewy body dementia, who has been living in the community with her . She had a problem with acute mental status changes, urinary tract infection. She was originally admitted to [facility] on 05/17/2018 and discharged on 05/19/2018. Since going back home, she initially was doing quite well and then had another decline in function with a recurrent urinary tract infection and was readmitted at this time to [facility] 05/22/2018. She was diagnosed with acute encephalopathy superimposed on Parkinson's disease and Lewy body dementia. She was seen by Neurology and thought to have a rapid onset of dementia, thought to be Lewy body. She had a decline in her function. She has been admitted now for acute in-hospital inpatient rehabilitation. PAST MEDICAL HISTORY: As noted above. She has a history of Parkinson's disease, Lewy body dementia, was diagnosed in 03/2018, history of UTI, bronchiolitis, and hypertension. There is a note of idiopathic stupor that she had with 1 of the urinary tract infections. MEDICATIONS: Please see the full medication listing. This includes vitamins, herbals, and supplements. ALLERGIES: No known drug allergies. HABITS: No history of tobacco or alcohol abuse that is noted. SOCIAL HISTORY: Lives in the community with her 's house, premorbidly ambulated without gait aids, 4 steps in. is retired and can assist the patient. REVIEW OF SYSTEMS: No complaints of chest pain, shortness of breath, and abdominal discomfort. PHYSICAL EXAMINATION: GENERAL: The patient was seen earlier, small statured, and [place] female. VITAL SIGNS: Last recorded temperature 99.3, pulse 81, respirations 18, blood pressure 139/78. [facility] [address] [place] [address] HISTORY AND PHYSICAL Name: GARTH COLLINS Room #: 514-[facility] IN M.R.#: [id number] Admission: 05/24/18 Attend Phys: Angel Banuelos MD Discharge: 06/03/18 Date of : 54 Report #: [id number] HEENT: Appeared to be benign. She has very limited verbalizations, but can speak simple words. CHEST: Sounded clear to auscultation. CARDIAC: Regular rate and rhythm. ABDOMEN: Bowel sounds positive, nontender. GENITOURINARY AND RECTAL: Deferred. NEUROLOGIC: There is some cogwheeling elbows and wrists. No real resting tremor was noted. EXTREMITIES: Functional range of motion of both upper and lower extremity strength is grade 4-/5. DTRs are trace to 1. She is needing min assist with basic functional mobility skills with some decreased balance. Tends to fatigue quickly. ASSESSMENT: 1. Metabolic encephalopathy. 2. Parkinson's disease. 3. Premorbid Lewy body dementia, nevertheless living in the community. 4. Urinary tract infection. 5. Functional decline. 6. Hypertension. 7. Electrolyte abnormalities. PLAN: The patient is admitted for acute in-hospital inpatient rehabilitation. From a post-admission physician evaluation perspective, there are no relevant changes since the preadmission screening. Please see the above review of prior and current medical and functional conditions and comorbidities. Please see the patient's previous and current functional status. As far as risk of complications, the patient has multiple medical comorbidities as noted above. Initial plan of care involves the interdisciplinary acute inpatient rehabilitation program with goal of maximizing the patient's functional independence so that she can hopefully return back to her prior living situation. Measurable functional goals would be for her to improve as far as cognition, functional mobility, and ADLs, so that she can reach a level where she can again be at the home setting with her assisting. Prognosis is reasonably good with estimated length of stay probably at least 7-10 days. Potential barriers would include the multiple medical comorbidities and decreased functional status. The patient meets diagnostic criteria for an acute in-hospital inpatient rehabilitation stay. She meets medical necessity criteria. [place] [address] HISTORY AND PHYSICAL Name: GARTH COLLINS Room #: 514-P [facility] IN M.R.#: [id number] Admission: 05/24/18 Attend Phys: Angel Banuelos MD Discharge: 06/03/18 Date of : 54 Report #: [id number] process consultant physicians involved. She does meet the tolerance requirements for therapies and has appropriate discharge goals back to the home setting. <ELECTRONICALLY SIGNED> By: Angel Banuelos MD 06/06/18 1123 [id number] Angel Banuelos MD /[facility]
== END 2018-06-03 13:13 | disposition home health service (06) | DRG 71 ==
LOC: ENTRNSPT 06-03 12:55 → EDTRNSPTSTS 06-03 13:00
PROVIDERS: Nurse Practitioner Family; ADMIT Physical Medicine & Rehabilitation
DX: G93.41 Metabolic encephalopathy (principal); N39.0 Urinary tract infection, site not specified; F20.2 Catatonic schizophrenia; G20 Parkinson's disease; F02.80 Dementia in other diseases classified elsewhere, unspecified severity, without behavioral disturbance, psychotic disturbance, mood disturbance, and anxiety; I10 Essential (primary) hypertension; E87.6 Hypokalemia; E78.5 Hyperlipidemia, unspecified; R41.0 Disorientation, unspecified; F01.50 Vascular dementia, unspecified severity, without behavioral disturbance, psychotic disturbance, mood disturbance, and anxiety; F32.9 Major depressive disorder, single episode, unspecified; Z79.899 Other long term (current) drug therapy
CPT/HCPCS: 10112